=== PATIENT | female | born 1990 | race American Indian/Alaskan Native ===

== ENCOUNTER 2019-02-17 18:15 | Emergency (ER) | payer OTHER ==
[2019-02-17 18:28] VITALS: BP 111/70
--- NOTE | 2019-02-17 18:29 | Emergency Department Report ---
Chief Complaint: Nausea/Vomiting/Diarrhea Stated Complaint: THROWING UP BLOOD/CHEST PAIN Time Seen by Provider: 02/17/19 18:24 - HPI History of Present Illness: pt presents for N/V that began last night has associated abd cramping no diarrhea no urinary sx states it began after going to [facility] she took ibuprofen 800 mg LNMP: december 2018 no PMHx no daily meds +smoker, 2-3 cigarettes non drinker no drug use MSE screening note: Focused history and physical exam performed. Due to findings the following was ordered: labs, UA, urine preg ED Disposition for MSE Condition: Stable
[2019-02-17 18:48] LABS: Basophils % (Auto) 0.5 % (0.0-1.8); Eosinophils # (Auto) 0.1 K/mm3 (0.0-0.4); Eosinophils % (Auto) 2.8 % (0.0-4.3); Hematocrit 37.5 % (30.3-42.9); Hemoglobin 12.7 gm/dl (10.1-14.3); Lymphocytes # (Auto) 1.5 K/mm3 (1.2-5.4); Lymphocytes % (Auto) 28.8 % (13.4-35.0); Mean Corpuscular HGB Conc 34 % (30-34); Mean Corpuscular Volume 87 fl (79-97); Monocytes # (Auto) 0.5 K/mm3 (0.0-0.8); Monocytes % (Auto) 9.8 % (0.0-7.3); Platelet Count 255 K/mm3 (140-440); Red Blood Count 4.33 M/mm3 (3.65-5.03); Red Cell Distribution Width 13.4 % (13.2-15.2)
[2019-02-17 19:11] LABS: Alanine Aminotransferase 19 units/L (7-56); Albumin 4.2 g/dL (3.9-5); BUN/Creatinine Ratio 12; Blood Urea Nitrogen 11 mg/dL (7-17); Calcium 8.4 mg/dL (8.4-10.2); Hemolysis Index 7
--- NOTE | 2019-02-17 20:56 | Emergency Department Report ---
HPI - General Chief Complaint: Nausea/Vomiting/Diarrhea Time Seen by Provider: 02/17/19 18:24 - HPI HPI: Room 30 The patient is a 29-year-old female presented with a chief complaint of hematemesis. The patient states over the past 2 months she's had 3 episodes of hematemesis, the most recent of which occurred yesterday. The patient says yesterday she vomited black-colored blood shortly after eating a salad. The patient states she developed midepigastric discomfort described as a "knot" last night. Patient denies melena or bright red blood per rectum. Patient is her epigastric discomfort score of 2/10 Location: Gastric intestinal system Duration: 2 months Quality: "Knot" Severity: 2/10 Modifying factors: [see above] Context: [see above] Mode of transportation: [not driving] ED Past Medical Hx - Past Medical History Previous Medical History?: No - Surgical History Past Surgical History?: No - Family History Family history: no significant - Social History Smoking Status: Current Every Day Smoker (3-4 cigarettes daily) Substance Use Type: Marijuana - Medications Home Medications: Home Medications Medication Instructions Recorded Confirmed Last Taken Type Ondansetron [Zofran ODT TAB] 8 mg PO Q8HR #20 tab.rapdis 02/17/19 Unknown Rx Pantoprazole [Protonix] 40 mg PO QDAY #30 tablet 02/17/19 Unknown Rx ED Review of Systems ROS: Stated complaint: THROWING UP BLOOD/CHEST PAIN Other details as noted in HPI Constitutional: no symptoms reported Eyes: denies: eye pain ENT: denies: throat pain Respiratory: no symptoms reported Cardiovascular: denies: chest pain Endocrine: no symptoms reported Gastrointestinal: abdominal pain, nausea, vomiting, hematemesis. denies: melena, hematochezia Genitourinary: denies: dysuria Musculoskeletal: denies: back pain Neurological: denies: headache Physical Exam - Physical Exam Vital Signs: Vital Signs 02/17/19 02/17/19 18:25 19:17 Temperature 98.4 F Pulse Rate 74 Respiratory 18 16 Rate Blood Pressure 111/70 O2 Sat by Pulse 100 100 Oximetry Vital Signs 02/17/19 02/17/19 18:25 19:17 Temperature 98.4 F Pulse Rate 74 Respiratory 18 16 Rate Blood Pressure 111/70 O2 Sat by Pulse 100 100 Oximetry Physical Exam: GENERAL: The patient is well-developed well-nourished female sitting in chair not appearing to be in acute distress HEENT: Normocephalic. Atraumatic. Extraocular motions are intact. Patient has moist mucous membranes. NECK: Supple. Trachea midline CHEST/LUNGS: Clear to auscultation. There is no respiratory distress noted. HEART/CARDIOVASCULAR: Regular. There is no tachycardia. There is no gallop rub or murmur. ABDOMEN: Abdomen is soft, with mild epigastric discomfort to palpation. Patient has normal bowel sounds. SKIN: There is no rash. There is no edema. There is no diaphoresis. NEURO: The patient is awake, alert, and oriented. The patient is cooperative. The patient has normal speech MUSCULOSKELETAL: There is no evidence of acute injury. RECTAL: GUAIAC NEGATIVE ED Course Vital Signs 02/17/19 02/17/19 18:25 19:17 Temperature 98.4 F Pulse Rate 74 Respiratory 18 16 Rate Blood Pressure 111/70 O2 Sat by Pulse 100 100 Oximetry ED Medical Decision Making - Lab Data Result diagrams: 02/17/19 18:37 02/17/19 18:37 Laboratory Tests 02/17/19 02/17/19 18:37 18:37 WBC 5.4 RBC 4.33 Hgb 12.7 Hct 37.5 MCV 87 MCH 29 MCHC 34 RDW 13.4 Plt Count 255 Lymph % (Auto) 28.8 [place] % (Auto) 9.8 H Eos % (Auto) 2.8 Baso % (Auto) 0.5 Lymph # 1.5 [place] # 0.5 Eos # 0.1 Baso # 0.0 Seg Neutrophils % 58.1 Seg Neutrophils # 3.1 Sodium 141 Potassium 3.5 L Chloride 104.5 Carbon Dioxide 25 Anion Gap 15 BUN 11 Creatinine 0.9 Estimated GFR > 60 BUN/Creatinine Ratio 12 Glucose 78 Calcium 8.4 Total Bilirubin 1.30 H AST 32 ALT 19 Alkaline Phosphatase 39 Total Protein 6.3 Albumin 4.2 Albumin/Globulin Ratio 2.0 Lipase 29 - Differential Diagnosis gastritis, peptic ulcer disease, pancreatitis Critical care attestation.: If time is entered above; I have spent that time in minutes in the direct care of this critically ill patient, excluding procedure time. ED Disposition Clinical Impression: Acute gastritis Disposition: DC- TO HOME OR SELFCARE Is pt being admited?: No Does the pt Need Aspirin: No Condition: Stable Instructions: Gastrointestinal Bleeding (ED) Additional Instructions: Return to the emergency department immediately should you develop worsening symptoms, fever, inability to tolerate food or liquid or any other concerns. Prescriptions: Pantoprazole [Protonix] 40 mg PO QDAY #30 tablet Ondansetron [Zofran ODT TAB] 8 mg PO Q8HR #20 tab.rapdis Referrals: [facility] [address] MD JOSELITO [Primary Care Provider] - 3-5 Days DARLIN FIGUEROA MD [Staff Physician] - 3-5 Days (Dr. Figueroa is a logging engineer. Please follow-up with him for further evaluation) Time of Disposition: 21:30
== END 2019-02-17 21:38 | disposition home or self-care (01) ==
LOC: ED 18:15
DX: K29.00 Acute gastritis without bleeding (principal); F17.210 Nicotine dependence, cigarettes, uncomplicated; F12.10 Cannabis abuse, uncomplicated
CPT/HCPCS: 36415; 80053; 82271; 83690; 85025; 99283